=== PATIENT | male | born 1985 | race Caucasian/White ===

== ENCOUNTER → 2024-06-02 | Outpatient (CLI) | payer BC ==
[2024-06-02 21:00] LABS: Basophils # (A) 0.05 X 10*3/uL (0.00-0.10); Eosinophils # (A) 0.19 X 10*3/uL (0.04-0.35); Eosinophils % (A) 3.9 %; HCT 43.5 % (39.6-50.0); HGB 14.3 g/dL (13.0-17.0); Lymphocytes # (A) 1.99 X 10*3/uL (0.90-5.00); Lymphocytes % (A) 40.7 %; MCH 28.5 pg (27.0-32.0); MCHC 32.9 g/dL (32.0-37.0); MCV 86.8 FL (80.0-97.0); Monocytes # (A) 0.42 X 10*3/uL (0.20-1.00); Monocytes % (A) 8.6 %; NRBC Per 100 WBC 0 X 10*3/uL (0.00-0.01); Neutrophils # (A) 2.23 X 10*3/uL (1.80-7.70); Neutrophils % (A) 45.6 %; Platelet Count 253 X 10*3/uL (140-440); RBC 5.01 X 10*6/uL (4.40-5.60); RDW 12.8 % (11.5-14.5); WBC 4.89 X 10*3/uL (4.50-10.00)
[2024-06-02 21:43] LABS: Protein, Total 7.3 g/dL (6.2-8.2)
[2024-06-02 22:33] LABS: % Iron Saturation 25.71 (15.00-50.00); Albumin 4.5 g/dL (3.8-4.9); Albumin/Globulin Ratio 1.61 Ratio (1.60-3.17); Bilirubin, Conjugated 0.27 mg/dL (0.20-0.40); Bilirubin,Unconjugated 1.13 mg/dL (0.20-1.00); Globulin 2.8 g/dL (1.6-3.3); Total Bilirubin 1.4 mg/dL (0.3-1.2); Total Protein 7.3 g/dL (6.2-8.2)
[2024-06-02 22:35] LABS: Hepatitis B Surface Antigen Nonreactive (Nonreactive); Hepatitis C IgG Antibody Nonreactive (Nonreactive)
[2024-06-02 22:57] LABS: Ceruloplasmin 23.9 mg/dL (20.0-60.0)
[2024-06-03 12:14] LABS: Smooth Muscle Antibody 6 UNITS (<20)
[2024-06-03 19:13] LABS: Albumin 4.14 g/dL (3.80-4.90); Gamma Globulin 1.25 g/dL (0.70-1.50)
== END | disposition home or self-care (01) ==
LOC: LABWHC1 15:22
PROVIDERS: ATTEND Internal Medicine Gastroenterology
DX: K76.0 Fatty (change of) liver, not elsewhere classified (principal); R74.8 Abnormal levels of other serum enzymes
CPT/HCPCS: 36415; 80076; 81596; 82103; 82390; 82728; 83516; 83540; 83550; 84165; 85025; 86038; 86803; 87340